=== PATIENT | male | born 1955 | race Asian ===

== ENCOUNTER 2017-09-05 14:25 | Emergency (ER) | payer OTHER, MEDICAID ==
[~2017-09-05] VITALS: Ht 167.6 cm; Wt 71.8 kg
[2017-09-05 14:28] VITALS: BP 128/84
[2017-09-05] MEDS ORDERED: FLUT44HFA IH (14:34)
[2017-09-05] MEDS ORDERED: MECL-111 PO (14:34)
[2017-09-05] MEDS ORDERED: SIMV-261 PO (14:34)
[2017-09-05] MEDS ORDERED: METF500T4 PO (14:34)
[2017-09-05] MEDS ORDERED: QUIN10 PO (14:34)
[2017-09-05] MEDS ORDERED: ASPI81 PO (14:34)
[2017-09-05] MEDS ORDERED: METO50 PO (14:34)
[2017-09-05] MEDS ORDERED: LORA10TA7 PO (14:34)
[2017-09-05] MEDS ORDERED: METF850T2 PO ×2 (14:34→14:38)
[2017-09-05 14:37] LABS: GLUCOSE,POINT OF CARE 133 MG/DL (70-110)
[2017-09-05] MEDS ORDERED: TraMADol HCL 50 MG TABLET PO ONE (16:15)
== END 2017-09-05 16:59 | disposition home or self-care (01) ==
LOC: EMS 14:29
DX: M75.92 Shoulder lesion, unspecified, left shoulder (principal); M54.6 Pain in thoracic spine; E11.9 Type 2 diabetes mellitus without complications; E78.00 Pure hypercholesterolemia, unspecified; I10 Essential (primary) hypertension
CPT/HCPCS: 82962; 99284

== ENCOUNTER → 2018-02-14 | Outpatient (CLI) | payer OTHER ==
[~2018-02-14] MED LIST: ASPI81 PO; FLUT44HFA IH; LORA10TA7 PO; MECL-111 PO; METF850T2 PO; METO50 PO; QUIN10 PO; SIMV-261 PO
== END | disposition home or self-care (01) ==
LOC: RADPV 13:46
PROVIDERS: ATTEND Hospitalist
DX: I12.9 Hypertensive chronic kidney disease with stage 1 through stage 4 chronic kidney disease, or unspecified chronic kidney disease (principal); E11.22 Type 2 diabetes mellitus with diabetic chronic kidney disease; N18.3 Chronic kidney disease, stage 3 (moderate); N40.0 Benign prostatic hyperplasia without lower urinary tract symptoms; E78.00 Pure hypercholesterolemia, unspecified
CPT/HCPCS: 76770

== ENCOUNTER 2021-09-04 07:09 | Inpatient (IN) | payer OTHER ==
[~2021-09-04] VITALS: Ht 167.6 cm; Wt 78.9 kg
[~2021-09-04 07:09] MED LIST changes: +ASPI-1450 PO; -ASPI81 PO; +FLUT44H IH; -FLUT44HFA IH; -MECL-111 PO; +MECL-160 PO; +METF-445 PO; -METF850T2 PO
[2021-09-04] MEDS ORDERED: TRAZ-257 PO (07:45)
[2021-09-04] MEDS ORDERED: CRAN250C PO (07:45)
[2021-09-04] MEDS ORDERED: ACET-3385 PO (07:45)
[2021-09-04] MEDS ORDERED: MENT1ADH18 TP (07:45)
[2021-09-04] MEDS ORDERED: KETOROLAC TROMETHAMINE 30 MG/ML VIAL IVP ONE (08:00)
[2021-09-04] MEDS ORDERED: MAG HYDROX/AL HYDROX/SIMETH 30 ML SUSP UDCUP PO ONE (08:00)
[2021-09-04] MEDS ORDERED: SODIUM CHLORIDE 0.9% 1,000 ML IV ONE (08:00)
[2021-09-04] MEDS ORDERED: FAMOTIDINE 10 MG/ML 2 ML VIAL IVP ONE (08:00)
[2021-09-04] MEDS ORDERED: ONDANSETRON HCL 4 MG/2 ML VIAL IVP ONE (08:00)
[2021-09-04 08:13] LABS: BASOPHILS % (AUTO) 0.8 % (0.0-2.0); EOSINOPHILS % (AUTO) 0.1 % (1.0-6.0); HEMATOCRIT 41.6 % (41-53); HEMOGLOBIN 14.8 g/dL (13.5-17.5); LYMPHOCYTES # (AUTO) 1.2 K/uL (1.0-4.8); LYMPHOCYTES % (AUTO) 17.1 % (22.0-44.0); MEAN CORPUSCULAR HEMOGLOBIN 34.6 pg (26.0-34.0); MEAN CORPUSCULAR HGB CONC 35.6 G/dL (31.0-37.0); MEAN CORPUSCULAR VOLUME 97 fL (80-100); MONOCYTES # (AUTO) 0.9 K/uL (0.1-1.0); MONOCYTES % (AUTO) 12.8 % (2.0-9.0); NEUTROPHILS # (AUTO) 4.7 K/uL (1.8-7.7); NEUTROPHILS % (AUTO) 69.2 % (40.0-70.0); PLATELET COUNT (AUTO) 236 K/uL (150-450); RED BLOOD CELL COUNT(AUTO) 4.28 MIL/uL (4.50-5.90); RED CELL DISTRIBUTION WIDTH 13.8 % (11.5-14.5)
[2021-09-04] MEDS ORDERED: IOHEXOL 350 MG/ML 100 ML VIAL ONE (08:44)
[2021-09-04] MEDS ORDERED: SODIUM CHLORIDE 0.9% 100 ML ONE (08:45)
[2021-09-04 08:52] LABS: CALCIUM, TOTAL 8.4 mg/dL (8.8-10.5); CREATININE 1.56 mg/dL (0.60-1.30); POTASSIUM 3.5 mmol/L (3.5-5.1)
[2021-09-04 08:59] LABS: LACTIC ACID 0.7 mmol/L (0.4-2.0)
[2021-09-04 09:20] LABS: ABG BASE EXCESS -2.4 mmol/L (-2.0-3.0); ABG CARBOXYHEMOGLOBIN 0.2 % (0.0-1.5); ABG HCO3 23.1 mmol/L (22.0-26.0); ABG METHEMOGLOBIN 0.3 % (0.0-1.5); ABG OXYGEN CONTENT 18.1 mL/dL (15.0-23.0); ABG OXYGEN SATURATION 96.2 % (95.0-98.0); ABG OXYHEMOGLOBIN 95.7 % (94.0-100.0); ABG PCO2 33 mmHg (35-45); ABG PH 7.443 (7.35-7.450); ABG TOTAL HEMOGLOBIN 13.4 G/dL (12.0-18.0); PO2, ARTERIAL BG 83.6 mmHg (79.0-87.0); SOURCE, BLOOD GAS ARTERIAL; TEMPERATURE, FAHRENHEIT, BG 98.6 FAHREN (96.0-98.6)
[2021-09-04 09:21] LABS: SITE, BLOOD GAS LFT RADIAL
[2021-09-04 10:17] LABS: SALICYLATE 0.8 mg/dL (2.8-20.0)
[2021-09-04 10:23] LABS: ALANINE AMINOTRANSFERASE 191 U/L (12-78); ALBUMIN 2.6 g/dL (3.4-5.0); ALKALINE PHOSPHATASE 77 U/L (46-116); ASPARTATE AMINOTRANSFERASE 265 U/L (15-37); BILIRUBIN,TOTAL 0.8 mg/dL (0.1-1.0); CALCIUM, TOTAL 7.6 mg/dL (8.8-10.5); CHLORIDE 96 mmol/L (98-107); CREATININE 1.48 mg/dL (0.60-1.30); GLOMERULAR FILTR. RATE CALC 48 mL/min (>60); GLUCOSE,RANDOM 139 mg/dL (70-110); POTASSIUM 3.7 mmol/L (3.5-5.1); SODIUM SERUM 131 mmol/L (136-145); TOTAL PROTEIN, SERUM 6.1 g/dL (6.4-8.2); UREA NITROGEN, BLOOD 19 mg/dL (7-18)
[2021-09-04 10:31] LABS: PHOSPHORUS 2.9 mg/dL (2.5-4.9)
[2021-09-04 10:34] LABS: ACETAMINOPHEN < 2 mcg/mL (10-30)
[2021-09-04 10:34] LABS: ANION GAP 30 mmol/L (8-16); CARBON DIOXIDE < 5 mmol/L (22-29)
[2021-09-04 11:14] LABS: COVID AG,FIA SOURCE NASOPHARYNGEAL
[2021-09-04] MEDS ORDERED: MECLIZINE HCL 25 MG TABLET PO PRN (11:15)
[2021-09-04] MEDS ORDERED: TraZODone HCL 100 MG TABLET PO PRN (11:15)
[2021-09-04] MEDS ORDERED: DEXTROSE 50%-WATER 25 GM/50 ML SYRINGE IVP PRN (11:15)
[2021-09-04] MEDS ORDERED: 0.9% SODIUM CHLORIDE 10 ML SYRINGE IVP PRN (11:30)
[2021-09-04] MEDS ORDERED: MORPHINE SULFATE 2 MG/ML SYRINGE IVP PRN (11:30)
[2021-09-04] MEDS ORDERED: IPRATROPIUM BROMIDE 0.5 MG/2.5 ML NEB SOLUTION NEB PRN (11:30)
[2021-09-04] MEDS ORDERED: ACETAMINOPHEN 325 MG TABLET PO PRN (11:30)
[2021-09-04] MEDS ORDERED: ONDANSETRON HCL 4 MG/2 ML VIAL IVP PRN (11:30)
[2021-09-04] MEDS ORDERED: ALBUTEROL SULFATE 2.5 MG/0.5 ML NEB SOLUTION NEB PRN (11:30)
[2021-09-04] MEDS ORDERED: BISACODYL 10 MG RECTAL RECTAL SUPPOSITORY PR PRN (11:30)
[2021-09-04] MEDS ORDERED: TAMS-13 PO (11:32)
[2021-09-04] MEDS ORDERED: MIRT-92 PO (11:32)
[2021-09-04] MEDS ORDERED: FLUT16H NASAL (11:32)
[2021-09-04] MEDS ORDERED: WATER IV ONE ×3 (11:45→19:00)
[2021-09-04] MEDS ORDERED: ACETYLCYSTEINE IV ONE ×3 (11:45→19:00)
[2021-09-04] MEDS ORDERED: DEXTROSE 5% IV ONE ×3 (11:45→19:00)
[2021-09-04 11:52] LABS: PROTHROMBIN TIME 10.4 SEC (9.4-11.6)
[2021-09-04] MEDS: SODIUM CHLORIDE 0.9% 1,000 ML IV SCH ×2 (11:52→21:15)
[2021-09-04] MEDS ORDERED: [UNRECOGNIZED DRUG - REMARK] IV ONE ×5 (12:30)
[2021-09-04] MEDS ORDERED: MAGNESIUM SULFATE 2 GM, MVI, ADULT NO.1 WITH VIT K 10 ML, THIAMINE 100 MG, FOLIC ACID 1... IV ONE ×5 (12:45)
[2021-09-04 15:20] LABS: CALCIUM, TOTAL 7.7 mg/dL (8.8-10.5); CREATININE 1.47 mg/dL (0.60-1.30); POTASSIUM 3.4 mmol/L (3.5-5.1)
[2021-09-04 15:29] LABS: PHOSPHORUS 1.6 mg/dL (2.5-4.9)
[2021-09-04] MEDS ORDERED: SIMVASTATIN 40 MG TABLET PO SCH (21:00)
[2021-09-04 21:11] VITALS: BP 132/79
[2021-09-04] MEDS: METOPROLOL TARTRATE 50 MG TABLET PO SCH (21:35)
[2021-09-04 22:16] LABS: GLUCOMETER DEV NAME(LOC) 5N.3; GLUCOSE,POINT OF CARE 187 MG/DL (70-110)
[2021-09-04 23:37] VITALS: BP 120/73
[2021-09-05 04:16] VITALS: BP 133/80
[2021-09-05] MEDS ORDERED: PNEUMOCOCCAL VACCINE POLYVALENT 0.5 ML VIAL [PPSV23] IM. ONE (06:00)
[2021-09-05] MEDS ORDERED: INFLUENZA VIRUS VACCINE QVS 2021-22 (6MO+)/PF 60 MCG/0.5 ML SYRINGE IM. ONE (06:00)
[2021-09-05] MEDS: INSULIN LISPRO 100 UNITS/ML SQ PRN ×3 (06:25→17:40)
[2021-09-05] MEDS: SODIUM CHLORIDE 0.9% 1,000 ML IV SCH ×2 (06:26→13:24)
[2021-09-05 08:02] VITALS: BP 136/71
[2021-09-05 09:09] LABS: BASOPHILS % (AUTO) 0.8 % (0.0-2.0); EOSINOPHILS % (AUTO) 2.8 % (1.0-6.0); HEMATOCRIT 38.2 % (41-53); HEMOGLOBIN 13.1 g/dL (13.5-17.5); LYMPHOCYTES # (AUTO) 0.7 K/uL (1.0-4.8); MEAN CORPUSCULAR HEMOGLOBIN 33.3 pg (26.0-34.0); MEAN CORPUSCULAR HGB CONC 34.2 G/dL (31.0-37.0); MEAN CORPUSCULAR VOLUME 98 fL (80-100); MONOCYTES # (AUTO) 0.6 K/uL (0.1-1.0); MONOCYTES % (AUTO) 10.8 % (2.0-9.0); NEUTROPHILS # (AUTO) 3.8 K/uL (1.8-7.7); NEUTROPHILS % (AUTO) 71.6 % (40.0-70.0); PLATELET COUNT (AUTO) 191 K/uL (150-450); RED BLOOD CELL COUNT(AUTO) 3.92 MIL/uL (4.50-5.90); RED CELL DISTRIBUTION WIDTH 13.8 % (11.5-14.5)
[2021-09-05 09:22] LABS: HEMOGLOBIN A1C 6.6 % (3.8-5.6)
[2021-09-05 09:40] LABS: ALANINE AMINOTRANSFERASE 121 U/L (12-78); ALBUMIN 2.4 g/dL (3.4-5.0); ALKALINE PHOSPHATASE 67 U/L (46-116); ANION GAP 8 mmol/L (8-16); ASPARTATE AMINOTRANSFERASE 99 U/L (15-37); BILIRUBIN,TOTAL 0.6 mg/dL (0.1-1.0); CALCIUM, TOTAL 7.8 mg/dL (8.8-10.5); CARBON DIOXIDE 24 mmol/L (22-29); CHLORIDE 103 mmol/L (98-107); CHOL/HDL RATIO 8.2 (4.2-7.3); CHOLESTEROL 261 mg/dL (131-200); CREATININE 1.38 mg/dL (0.60-1.30); GLOMERULAR FILTR. RATE CALC 52 mL/min (>60); GLUCOSE,RANDOM 181 mg/dL (70-110); HDL CHOLESTEROL 32 mg/dL (40-60); POTASSIUM 3.6 mmol/L (3.5-5.1); SODIUM SERUM 135 mmol/L (136-145); THYROID STIMULATING HORMONE 1.34 uIU/mL (0.36-3.74); TOTAL PROTEIN, SERUM 6.2 g/dL (6.4-8.2); TRIGLYCERIDES 1179 mg/dL (15-150); UREA NITROGEN, BLOOD 7 mg/dL (7-18)
[2021-09-05] MEDS: [UNRECOGNIZED DRUG - OTHER] IH SCH (09:47)
[2021-09-05] MEDS: FLUTICASONE PROPIONATE IH SCH (09:47)
[2021-09-05] MEDS: ASPIRIN 81 MG CHEWABLE TABLET PO SCH (09:48)
[2021-09-05] MEDS: LORATADINE 10 MG TABLET PO SCH (09:48)
[2021-09-05] MEDS: METOPROLOL TARTRATE 50 MG TABLET PO SCH ×2 (09:48→21:37)
[2021-09-05] MEDS: PANTOPRAZOLE SODIUM 40 MG/VIAL IVP SCH (09:48)
[2021-09-05 11:51] LABS: GLUCOMETER DEV NAME(LOC) 5N.3; GLUCOSE,POINT OF CARE 174 MG/DL (70-110)
[2021-09-05 12:04] VITALS: BP 147/78
[2021-09-05 13:16] LABS: GLUCOMETER DEV NAME(LOC) 5N.3; GLUCOSE,POINT OF CARE 168 MG/DL (70-110)
[2021-09-05 16:08] VITALS: BP 153/82
[2021-09-05] MEDS: FOLIC ACID 1 MG TABLET PO SCH (16:15)
[2021-09-05] MEDS: GEMFIBROZIL 600 MG TABLET PO SCH (16:15)
[2021-09-05] MEDS: THIAMINE 100 MG TABLET PO SCH (16:15)
[2021-09-05] MEDS: MULTIVITAMINS WITH MINERALS, THERAPEUTIC TABLET PO SCH (16:15)
[2021-09-05 20:15] VITALS: BP 123/75
[2021-09-06 00:11] VITALS: BP 128/76
[2021-09-06] MEDS: SODIUM CHLORIDE 0.9% 1,000 ML IV SCH ×2 (00:26→12:39)
[2021-09-06 04:36] VITALS: BP 125/72
[2021-09-06] MEDS: GEMFIBROZIL 600 MG TABLET PO SCH ×2 (06:11→16:54)
[2021-09-06 06:21] LABS: GLUCOMETER DEV NAME(LOC) 5N.1C; GLUCOSE,POINT OF CARE 141 MG/DL (70-110)
[2021-09-06 06:21] LABS: GLUCOMETER DEV NAME(LOC) 5N.1C; GLUCOSE,POINT OF CARE 139 MG/DL (70-110)
[2021-09-06 07:10] LABS: GLUCOMETER DEV NAME(LOC) 5N.3; GLUCOSE,POINT OF CARE 157 MG/DL (70-110)
[2021-09-06 08:03] VITALS: BP 130/73
[2021-09-06 08:35] LABS: CREATININE 1.29 mg/dL (0.60-1.30); MAGNESIUM 2.6 mg/dL (1.80-2.40); PHOSPHORUS 2.3 mg/dL (2.5-4.9); POTASSIUM 3.7 mmol/L (3.5-5.1)
[2021-09-06 08:47] LABS: BASOPHILS % (AUTO) 0.3 % (0.0-2.0); EOSINOPHILS % (AUTO) 5.5 % (1.0-6.0); HEMATOCRIT 35.9 % (41-53); HEMOGLOBIN 12.4 g/dL (13.5-17.5); LYMPHOCYTES # (AUTO) 1.2 K/uL (1.0-4.8); LYMPHOCYTES % (AUTO) 18.2 % (22.0-44.0); MEAN CORPUSCULAR HEMOGLOBIN 34.2 pg (26.0-34.0); MEAN CORPUSCULAR HGB CONC 34.7 G/dL (31.0-37.0); MEAN CORPUSCULAR VOLUME 99 fL (80-100); MONOCYTES # (AUTO) 0.9 K/uL (0.1-1.0); MONOCYTES % (AUTO) 13.4 % (2.0-9.0); NEUTROPHILS # (AUTO) 4.1 K/uL (1.8-7.7); NEUTROPHILS % (AUTO) 62.6 % (40.0-70.0); PLATELET COUNT (AUTO) 176 K/uL (150-450); RED BLOOD CELL COUNT(AUTO) 3.64 MIL/uL (4.50-5.90); RED CELL DISTRIBUTION WIDTH 14.3 % (11.5-14.5)
[2021-09-06 08:53] LABS: ALBUMIN 2.5 g/dL (3.4-5.0); BILIRUBIN,TOTAL 0.6 mg/dL (0.1-1.0); CALCIUM, TOTAL 8.1 mg/dL (8.8-10.5); CREATININE 1.21 mg/dL (0.60-1.30); POTASSIUM 3.6 mmol/L (3.5-5.1); TOTAL PROTEIN, SERUM 6.2 g/dL (6.4-8.2)
[2021-09-06] MEDS: LORATADINE 10 MG TABLET PO SCH (09:01)
[2021-09-06] MEDS: METOPROLOL TARTRATE 50 MG TABLET PO SCH (09:01)
[2021-09-06] MEDS: ASPIRIN 81 MG CHEWABLE TABLET PO SCH (09:01)
[2021-09-06] MEDS: THIAMINE 100 MG TABLET PO SCH (09:01)
[2021-09-06] MEDS: MULTIVITAMINS WITH MINERALS, THERAPEUTIC TABLET PO SCH (09:01)
[2021-09-06] MEDS: PANTOPRAZOLE SODIUM 40 MG/VIAL IVP SCH (09:02)
[2021-09-06] MEDS: FOLIC ACID 1 MG TABLET PO SCH (09:02)
[2021-09-06] MEDS ORDERED: SODIUM,POTASSIUM PHOSPHATES POWDER PACKET PO SCH (10:30)
[2021-09-06 11:32] VITALS: BP 118/65
[2021-09-06] MEDS: INSULIN LISPRO 100 UNITS/ML SQ PRN (12:22)
[2021-09-06] MEDS: [UNRECOGNIZED DRUG - OTHER] IH SCH (12:23)
[2021-09-06] MEDS: FLUTICASONE PROPIONATE IH SCH (12:23)
[2021-09-06] MEDS ORDERED: GLIP5 PO (13:40)
[2021-09-06] MEDS ORDERED: METO25 PO (13:40)
[2021-09-06] MEDS ORDERED: GEMF600T90 PO (13:41)
[2021-09-06] MEDS ORDERED: FOLI0.4T6 PO (15:07)
[2021-09-06] MEDS ORDERED: MULT-248 PO (15:08)
[2021-09-06] MEDS ORDERED: THIA100T80 PO (15:09)
[2021-09-06] MEDS ORDERED: MECL25TA39 PO (15:10)
[2021-09-07 11:56] LABS: GLUCOMETER DEV NAME(LOC) 5N.3; GLUCOSE,POINT OF CARE 162 MG/DL (70-110)
[2021-09-08 05:07] LABS: HEPATITIS C AB (EIA) <0.1 s/co ratio (0.0-0.9)
== END 2021-09-06 16:00 | disposition home or self-care (01) | DRG 641 ==
LOC: EMS 07:14 → 5S 18:39
PROVIDERS: ADMIT Internal Medicine; ATTEND Internal Medicine
DX: E87.2 Acidosis (principal); N17.9 Acute kidney failure, unspecified; E72.53 Primary hyperoxaluria; E11.22 Type 2 diabetes mellitus with diabetic chronic kidney disease; E78.00 Pure hypercholesterolemia, unspecified; E78.1 Pure hyperglyceridemia; E78.5 Hyperlipidemia, unspecified; Z20.822 Contact with and (suspected) exposure to COVID-19; F10.20 Alcohol dependence, uncomplicated; I13.10 Hypertensive heart and chronic kidney disease without heart failure, with stage 1 through stage 4 chronic kidney disease, or unspecified chronic kidney disease; N18.30 Chronic kidney disease, stage 3 unspecified; N40.0 Benign prostatic hyperplasia without lower urinary tract symptoms; E83.39 Other disorders of phosphorus metabolism; Z79.899 Other long term (current) drug therapy
CPT/HCPCS: 36600; 74177; 76705; 80048; 80053; 80061; 80074; 82009; 82550; 82607; 82805; 82962; 83036; 83605; 83690; 83735; 83880; 84100; 84145; 84439; 84443; 84484; 85025; 85610; 85730; 93005; 93306; 99285; C9113; G0480; G0481; J0132; J1885; J2405; J3411; J3475; J3490; J3535; J7030; J7050; J7060; Q9967

== ENCOUNTER 2022-01-07 11:25 | Emergency (ER) | payer OTHER ==
[~2022-01-07] VITALS: Ht 167.6 cm; Wt 72.6 kg
[~2022-01-07 11:25] MED LIST changes: -ASPI-1450 PO; +FERR325T27 PO; -FLUT44H IH; +FOLI0.4T6 PO; -LORA10TA7 PO; -MECL-160 PO; +MECL25TA39 PO; -METF-445 PO; -METO50 PO; +MULT-248 PO; +PANT-31 PO; -QUIN10 PO; -SIMV-261 PO; +TAMS-13 PO; +THIA100T80 PO
[2022-01-07] MEDS ORDERED: METO50 PO (11:32)
[2022-01-07] MEDS ORDERED: THIA100T80 PO (12:06)
[2022-01-07] MEDS ORDERED: TRAZ-252 PO (12:08)
[2022-01-07 12:09] LABS: BASOPHILS % (AUTO) 1.1 % (0.0-2.0); EOSINOPHILS % (AUTO) 4.6 % (1.0-6.0); HEMATOCRIT 29.8 % (41-53); HEMOGLOBIN 10.4 g/dL (13.5-17.5); LYMPHOCYTES # (AUTO) 1.2 K/uL (1.0-4.8); LYMPHOCYTES % (AUTO) 19.6 % (22.0-44.0); MEAN CORPUSCULAR HEMOGLOBIN 32.3 pg (26.0-34.0); MEAN CORPUSCULAR HGB CONC 34.8 G/dL (31.0-37.0); MEAN CORPUSCULAR VOLUME 93 fL (80-100); MONOCYTES # (AUTO) 0.5 K/uL (0.1-1.0); MONOCYTES % (AUTO) 7.4 % (2.0-9.0); NEUTROPHILS # (AUTO) 4.2 K/uL (1.8-7.7); NEUTROPHILS % (AUTO) 67.3 % (40.0-70.0); PLATELET COUNT (AUTO) 510 K/uL (150-450); RED BLOOD CELL COUNT(AUTO) 3.21 MIL/uL (4.50-5.90); RED CELL DISTRIBUTION WIDTH 15.2 % (11.5-14.5)
[2022-01-07 12:20] LABS: PROTHROMBIN TIME 10.4 SEC (9.4-11.6)
[2022-01-07 12:50] LABS: ALBUMIN 3.6 g/dL (3.4-5.0); BILIRUBIN,TOTAL 0.3 mg/dL (0.1-1.0); CALCIUM, TOTAL 9.6 mg/dL (8.8-10.5); CREATININE 1.41 mg/dL (0.60-1.30); TOTAL PROTEIN, SERUM 7.8 g/dL (6.4-8.2)
[2022-01-07 12:54] LABS: POTASSIUM 4.6 mmol/L (3.5-5.1)
[2022-01-07] MEDS ORDERED: SODIUM CHLORIDE 0.9% 500 ML IV ONE (13:45)
[2022-01-07 16:37] VITALS: BP 135/78
== END 2022-01-07 16:55 | disposition home or self-care (01) ==
LOC: EMS 11:33
DX: R42 Dizziness and giddiness (principal); I10 Essential (primary) hypertension; E11.9 Type 2 diabetes mellitus without complications; E78.00 Pure hypercholesterolemia, unspecified; Z79.899 Other long term (current) drug therapy
CPT/HCPCS: 36415; 70450; 71045; 80053; 84484; 85025; 85610; 85730; 93005; 99285; J7040

== ENCOUNTER 2022-12-15 09:51 | Emergency (ER) | payer MEDICARE, OTHER ==
[~2022-12-15] VITALS: Ht 167.6 cm; Wt 79.5 kg
[~2022-12-15 09:51] MED LIST changes: +METO50 PO; +TRAZ-252 PO
[2022-12-15 10:49] LABS: COVID AG,FIA SOURCE NASAL SWAB
[2022-12-15 11:20] LABS: INFLUENZA TYPE A NEGATIVE FOR TYPE A (NEGATIVE); INFLUENZA TYPE B NEGATIVE FOR TYPE B (NEGATIVE)
[2022-12-15] MEDS ORDERED: IBUPROFEN 600 MG TABLET PO ONE (14:00)
[2022-12-15] MEDS ORDERED: ACETAMINOPHEN 500 MG TABLET PO ONE (14:00)
[2022-12-15] MEDS ORDERED: BENZONATATE 100 MG CAPSULE PO ONE (14:15)
[2022-12-15] MEDS ORDERED: IBUP-1492 PO (14:20)
[2022-12-15] MEDS ORDERED: BENZ-227 PO (14:20)
[2022-12-15 14:39] VITALS: BP 126/81
[2022-12-16] MEDS ORDERED: DIPH25CA85 PO (23:11)
== END 2022-12-15 17:02 | disposition home or self-care (01) ==
LOC: EMS 10:22
DX: R05.9 Cough, unspecified (principal); J02.9 Acute pharyngitis, unspecified; R13.10 Dysphagia, unspecified; E11.9 Type 2 diabetes mellitus without complications; E78.00 Pure hypercholesterolemia, unspecified; I10 Essential (primary) hypertension; Z20.822 Contact with and (suspected) exposure to COVID-19
CPT/HCPCS: 71046; 87430; 87804; 99284

== ENCOUNTER 2022-12-16 22:39 | Emergency (ER) | payer MEDICARE ==
[~2022-12-16] VITALS: Ht 167.6 cm; Wt 80.0 kg
[~2022-12-16 22:39] MED LIST changes: +BENZ-227 PO; -FERR325T27 PO; +IBUP-1492 PO
[2022-12-16 23:00] VITALS: BP 129/77
[2022-12-16] MEDS ORDERED: DIPH25CA85 PO (23:11)
[2022-12-16] MEDS ORDERED: DiphenhydrAMINE HCL 50 MG CAPSULE PO ONE (23:15)
[2022-12-16] MEDS ORDERED: ALBUTEROL SULFATE HFA 90 MCG/PUFF 8 GM INHALER IH ONE (23:15)
== END 2022-12-16 23:25 | disposition home or self-care (01) ==
LOC: EMS 22:42
DX: J04.0 Acute laryngitis (principal); J40 Bronchitis, not specified as acute or chronic; G47.00 Insomnia, unspecified; E11.9 Type 2 diabetes mellitus without complications; E78.00 Pure hypercholesterolemia, unspecified; I10 Essential (primary) hypertension
CPT/HCPCS: 99283; 94640; J3535

== ENCOUNTER 2024-01-29 09:18 | Emergency (ER) | payer MEDICARE ==
[~2024-01-29] VITALS: Ht 167.6 cm; Wt 75.0 kg
[~2024-01-29 09:18] MED LIST changes: +DIPH25CA85 PO; -TAMS-13 PO; +TAMS0.4C94 PO
[2024-01-29 09:25] VITALS: TEMP 98.6
[2024-01-29 09:31] VITALS: BP 133/81; PULSE 110; RESP 18
[2024-01-29 10:25] LABS: BASOPHILS % (AUTO) 0.4 % (0.0-2.0); EOSINOPHILS % (AUTO) 0.5 % (1.0-6.0); HEMATOCRIT 46.4 % (41-53); HEMOGLOBIN 15.6 g/dL (13.5-17.5); LYMPHOCYTES # (AUTO) 0.8 K/uL (1.0-4.8); LYMPHOCYTES % (AUTO) 10.5 % (22.0-44.0); MEAN CORPUSCULAR HEMOGLOBIN 31.5 pg (26.0-34.0); MEAN CORPUSCULAR HGB CONC 33.6 G/dL (31.0-37.0); MEAN CORPUSCULAR VOLUME 94 fL (80-100); MONOCYTES # (AUTO) 1.1 K/uL (0.1-1.0); MONOCYTES % (AUTO) 15.2 % (2.0-9.0); NEUTROPHILS # (AUTO) 5.3 K/uL (1.8-7.7); NEUTROPHILS % (AUTO) 73.4 % (40.0-70.0); PLATELET COUNT (AUTO) 195 K/uL (150-450); RED BLOOD CELL COUNT(AUTO) 4.94 MIL/uL (4.50-5.90); RED CELL DISTRIBUTION WIDTH 14.6 % (11.5-14.5); WHITE BLOOD COUNT (AUTO) 7.2 K/uL (4.5-11.0)
[2024-01-29 10:34] LABS: ANION GAP 10 mmol/L (8-16); CALCIUM, TOTAL 9.7 mg/dL (8.8-10.5); CARBON DIOXIDE 27 mmol/L (22-29); CHLORIDE 99 mmol/L (98-107); CREATININE 1.38 mg/dL (0.60-1.30); GLOMERULAR FILTR. RATE CALC 51 mL/min (>60); GLUCOSE,RANDOM 104 mg/dL (70-110); POTASSIUM 3.9 mmol/L (3.5-5.1); SODIUM SERUM 136 mmol/L (136-145); UREA NITROGEN, BLOOD 12 mg/dL (7-18)
[2024-01-29 10:40] LABS: ALANINE AMINOTRANSFERASE 26 U/L (12-78); ALBUMIN 3.9 g/dL (3.4-5.0); ALKALINE PHOSPHATASE 59 U/L (46-116); ASPARTATE AMINOTRANSFERASE 25 U/L (15-37); BILIRUBIN,TOTAL 0.8 mg/dL (0.1-1.0); TOTAL PROTEIN, SERUM 8.2 g/dL (6.4-8.2)
[2024-01-29 10:44] LABS: TROPONIN I-HIGH SENSITIVITY 4 ng/L (<76)
[2024-01-29 10:48] LABS: B-TYPE NATRIURETIC PEPTIDE 18 pg/mL (0-100)
[2024-01-29 10:49] LABS: LACTIC ACID 1.2 mmol/L (0.4-2.0)
[2024-01-29 11:06] LABS: COVID AG,FIA SOURCE NASAL SWAB
[2024-01-29 11:33] LABS: INFLUENZA TYPE A NEGATIVE FOR TYPE A (NEGATIVE); INFLUENZA TYPE B NEGATIVE FOR TYPE B (NEGATIVE); SARS-COV2 (COVID) ANTIGEN,FIA Negative (Negative)
[2024-01-29] MEDS ORDERED: AZIT250T9 PO (11:44)
== END 2024-01-29 11:54 | disposition home or self-care (01) ==
LOC: EMS 09:18
DX: J98.4 Other disorders of lung (principal); E11.9 Type 2 diabetes mellitus without complications; E78.00 Pure hypercholesterolemia, unspecified; I10 Essential (primary) hypertension; Z20.822 Contact with and (suspected) exposure to COVID-19
CPT/HCPCS: 71045; 80053; 83605; 83880; 84484; 85025; 87804; 93005; 99285; 36415-L1; 36415-TC